=== PATIENT | male | born 1970 | race Caucasian/White ===

== ENCOUNTER 2016-07-10 11:19 | Emergency (ER) | payer BC ==
[~2016-07-10] VITALS: Ht 177.8 cm; Wt 95.0 kg
[~2016-07-10 11:19] MED LIST: AMOXICILLIN500 MG PO; AMOXIL500 M1 OR; ATUSS DS OR; CIPROFLOXACN500 MG PO; NO HOME MEDS; ONDANSETRON4 MG PO; ULTRAM50 M1 PO; ZANTAC150 M1 PO; ZPAK OR
[2016-07-10 12:19] LABS: HEMATOCRIT 47.6 % (39.0-50.0); HEMOGLOBIN 16.4 g/dl (14.0-18.0); IMMATURE GRANULOCYTES 0.4 % (0.0-1.0); MEAN CELL VOLUME 94.4 fL CALC (80.0-100.0); MEAN CORPUSCULAR HGB 32.5 pG CALC (26.0-32.0); MEAN CORPUSCULAR HGB CONC 34.5 g/L CALC (32.0-36.0); NEUT# 6.78 thou/uL (1.82-7.42); RED BLOOD COUNT 5.04 mill/uL (4.70-6.10); RED CELL DISTRI WIDTH 13.6 % (11.5-15.5)
[2016-07-10 12:27] LABS: ALBUMIN 3.9 g/dL (3.2-5.0); ALKALINE PHOSPHATASE 76 u/l (38-126); ANION GAP 12 (6-22 (CALC)); BILIRUBIN, TOTAL 0.6 mg/dL (0.0-1.4); BUN 12 mg/dL (9-20); BUN/CREATININE RATIO 12 (12-20 (CALC)); CARBON DIOXIDE 26 mmol/l (22-30); CHLORIDE 109 mmol/l (95-108); GFR > 60 ML/MIN (>=60 (CALC)); GFR FOR AFR.AMER. > 60 ML/MIN (>=60 (CALC)); GLUCOSE 98 mg/dL (75-110); POTASSIUM 3.8 mmol/l (3.5-5.1); SGOT/AST 27 u/l (17-59); SGPT/ALT 46 u/l (21-72); SODIUM 143 mmol/l (137-146); TOTAL PROTEIN 6.8 g/dL (6.3-8.2)
[2016-07-10] MEDS ORDERED: NAPROSYN500 MG PO (13:40)
[2016-07-10 14:28] VITALS: BP 146/92
== END 2016-07-10 15:25 | disposition home or self-care (01) | DRG 923 ==
LOC: ED 11:19
PROVIDERS: Emergency Medicine
DX: T75.4XXA Electrocution, initial encounter (principal); I10 Essential (primary) hypertension; F17.210 Nicotine dependence, cigarettes, uncomplicated; W86.1XXA Exposure to industrial wiring, appliances and electrical machinery, initial encounter; Y92.149 Unspecified place in prison as the place of occurrence of the external cause; Z86.73 Personal history of transient ischemic attack (TIA), and cerebral infarction without residual deficits